=== PATIENT | male | born 1965 | race Two or more races ===

== ENCOUNTER → 2021-11-29 06:24 | Outpatient (CLI) | payer OTHER | END | disposition home or self-care (01) | LOC: LAB 06:24 | DX: E11.69 Type 2 diabetes mellitus with other specified complication (principal); E78.5 Hyperlipidemia, unspecified; I11.9 Hypertensive heart disease without heart failure; N40.0 Benign prostatic hyperplasia without lower urinary tract symptoms; Z12.11 Encounter for screening for malignant neoplasm of colon ==

== ENCOUNTER 2022-01-07 15:36 | Emergency (ER) | payer OTHER ==
[~2022-01-07] VITALS: Ht 180.3 cm; Wt 77.1 kg
[2022-01-07] MEDS ORDERED: METFORMIN HCL500 M4 PO (16:23)
[2022-01-07] MEDS ORDERED: KETO10TA2 PO (22:36)
== END 2022-01-07 22:47 | disposition home or self-care (01) ==
LOC: ER 15:36
DX: M79.672 Pain in left foot (principal); L84 Corns and callosities

== ENCOUNTER 2022-01-09 18:32 | Emergency (ER) | payer OTHER ==
[~2022-01-09] VITALS: Ht 180.3 cm; Wt 77.1 kg
[~2022-01-09 18:32] MED LIST: KETO10TA2 PO; METFORMIN HCL500 M4 PO
[2022-01-09] MEDS ORDERED: TRAMADOR (19:11)
[2022-01-10] MEDS ORDERED: ATORVASTATIN CA20 MG PO (15:17)
[2022-01-10] MEDS ORDERED: LISINOPRIL2.5 MG PO (15:17)
== END 2022-01-09 21:19 | disposition home or self-care (01) ==
LOC: ER 18:32
DX: L84 Corns and callosities (principal); M79.672 Pain in left foot

== ENCOUNTER 2022-01-10 14:36 | Inpatient (IN) | payer OTHER ==
[~2022-01-10] VITALS: Ht 180.3 cm; Wt 77.1 kg
[~2022-01-10 14:36] MED LIST changes: +TRAMADOR
[2022-01-10] MEDS ORDERED: ATORVASTATIN CA20 MG PO (15:17)
[2022-01-10] MEDS ORDERED: LISINOPRIL2.5 MG PO (15:17)
[2022-01-11] MEDS ORDERED: ACARBOSE25 MG (07:50)
== END 2022-01-14 17:23 | disposition home or self-care (01) | DRG 593 ==
LOC: ER 14:36 → MEDI 21:59
PROVIDERS: ADMIT Internal Medicine; ATTEND Internal Medicine
PROC: 0HBNXZZ Excision of Left Foot Skin, External Approach (ICD-10-PCS; principal; 2022-01-10)
PROC: 0H9NXZZ Drainage of Left Foot Skin, External Approach (ICD-10-PCS; 2022-01-10)
PROC: BQ3FZZZ Magnetic Resonance Imaging (MRI) of Left Lower Leg (ICD-10-PCS; 2022-01-10)
PROC: B54CZZZ Ultrasonography of Left Lower Extremity Veins (ICD-10-PCS; 2022-01-12)
DX: L97.523 Non-pressure chronic ulcer of other part of left foot with necrosis of muscle (principal); L02.612 Cutaneous abscess of left foot; L08.89 Other specified local infections of the skin and subcutaneous tissue; E11.621 Type 2 diabetes mellitus with foot ulcer; B96.89 Other specified bacterial agents as the cause of diseases classified elsewhere; M79.672 Pain in left foot; Z79.4 Long term (current) use of insulin; Z20.822 Contact with and (suspected) exposure to COVID-19

== ENCOUNTER 2025-01-02 07:17 | Emergency (ER) | payer OTHER ==
[~2025-01-02 07:17] MED LIST changes: +ACARBOSE25 MG; +ATORVASTATIN CA20 MG PO; +LISINOPRIL2.5 MG PO
[2025-01-02] MEDS ORDERED: CEFTRIAXONE SODIUM 2,000 MG VIAL IV ONE (14:15)
== END 2025-01-02 13:00 | disposition home or self-care (01) ==
LOC: ER 07:22
DX: E11.621 Type 2 diabetes mellitus with foot ulcer (principal); L97.528 Non-pressure chronic ulcer of other part of left foot with other specified severity; L03.116 Cellulitis of left lower limb; M79.672 Pain in left foot

== ENCOUNTER 2025-05-19 05:03 | Inpatient (IN) | payer OTHER ==
[~2025-05-19] VITALS: Ht 180.3 cm; Wt 79.4 kg
--- NOTE | 2025-05-19 05:19 | NUR ---
SE RECIBE PACIENTE ALERTA Y CONCIENTE X3. EL MISMO REFIERE VENIR A JEFFREY DE EMRGENCIA POR TENER EL PIES IZQ. INFLAMADO DESDE HACE 2 JOHNS. SE PROCEDE A MELISSA S/V AL PACIENTE Y SE UBICA
[2025-05-19] MEDS ORDERED: KETOROLAC TROMETHAMINE 30 MG VIAL IV STA (07:27)
[2025-05-19] MEDS ORDERED: CEFTRIAXONE SODIUM 1,000 MG VIAL IV STA (07:28)
[2025-05-19] MEDS ORDERED: KETOROLAC TROMETHAMINE 30 MG VIAL ONE (07:29)
[2025-05-19] MEDS ORDERED: CEFTRIAXONE SODIUM 1,000 MG VIAL ONE (07:29)
--- NOTE | 2025-05-19 07:39 | NUR ---
PTE ES ORIENTADO POR LIS DIGGS DE [place] MEDICO EL CUAL REFIERE ENTENDER Y ACEPTAR. SE COLOCA H/L, SE RECOLECTAN MUESTRAS DE LAB Y SE ADMISNITRAN MEDICAMENTOS RADHA ORDEN MEDICA BAJO MEDIDAS ASEPTICAS.
[2025-05-19 08:30] LABS: BASO % 0.4 % (0.1-1.2); EOS # 0.06 (0.04-0.54); EOS % 0.4 % (0.7-7.0); LYMPH # 1.48 (1.18-3.74); LYMPH % 9.2 % (19.3-53.1); MEAN PLATELET VOLUME 10.10 fl (9.4-12.4); MONO # 1.92 (0.24-0.82); MONO % 11.9 % (4.7-12.5); NEUT # 12.51 (1.56-6.13); NEUT % 77.5 % (34.0-71.1); RED CELL DISTRIBUTION WIDTH 11.6 % (11.6-14.4)
[2025-05-19 08:57] LABS: INR 1.05
[2025-05-19 09:03] LABS: ALT/SGPT 24.0 U/L (12-78); AST/SGOT 18.0 U/L (15-37); BILIRUBIN TOTAL 0.88 mg/dL (0.3-1.2); BUN CREA RATIO 18.0 (7.0-25.0); CREATININE SERUM 1.02 mg/dL (0.70-1.30); GFR 74.75; GLOBULINA 4.8 G/DL (2.4-3.5); GLUCOSE FASTING 163.0 mg/dL (65-100); OSMOLALITY SERUM 279.0 MOSM/KG (275-295)
[2025-05-19 09:11] LABS: URINE APPEARANCE Clear; URINE BILIRRUBIN Negative (NEGATIVE); URINE BLOOD Negative; URINE COLOR Yellow; URINE LEUKOCYTE Negative; URINE NITRATE Negative; URINE PROTEIN 30 (NEGATIVE); URINE UROBILINOGEN 0.2 E.U./dl
[2025-05-19 09:12] LABS: URINE BACTERIA 5.9 uL (0.0-1933); URINE EPITHELIAL CELLS 2.4 uL (0.0-38.8); URINE WBC 3.5 uL (0.0-23.2)
[2025-05-19 09:20] LABS: URINE CAST 0.58 uL (0.0-1.40); URINE GLUCOSE >=1000 MG/DL (NEGATIVE); URINE KETONE 80 (NEGATIVE); URINE RBC 0.8 uL (0.0-20.8)
[2025-05-19] MEDS ORDERED: DEXTROSE 50 % IN WATER 0.5 G/ML DISP.SYRIN IV PRN (13:45)
[2025-05-19] MEDS ORDERED: INSULIN LISPRO 1,000 UNIT/10 ML UNITS SUBCUTANEO PRN (13:45)
[2025-05-19] MEDS ORDERED: ENOXAPARIN SODIUM 40 MG/0.4 ML SYRINGE SUBCUTANEO SCH (13:48)
[2025-05-19] MEDS ORDERED: PANTOPRAZOLE SODIUM 40 MG in 0.9 % SODIUM CHLORIDE 8 ML IV PUSH SCH (13:48)
[2025-05-19] MEDS ORDERED: ENOXAPARIN SODIUM 40 MG/0.4 ML SYRINGE SUBCUTANEO ONE (13:55)
[2025-05-19] MEDS ORDERED: PIPERACILLIN/TAZOBACTAM SODIUM 3.375 GM VIAL IV ONE (13:55)
[2025-05-19] MEDS ORDERED: KETOROLAC TROMETHAMINE 30 MG VIAL IV PRN (14:00)
[2025-05-19] MEDS ORDERED: PIPERACILLIN/TAZOBACTAM SODIUM 3.375 GM in 0.9 % SODIUM CHLORIDE 100 ML IV SCH (14:00)
[2025-05-19] MEDS ORDERED: ACETAMINOPHEN 325 MG TABLET PO PRN (14:00)
[2025-05-19] MEDS ORDERED: 0.9 % SODIUM CHLORIDE 1,000 ML IV SCH (14:00)
[2025-05-19] MEDS ORDERED: LISINOPRIL 10 MG TABLET PO SCH (15:02)
[2025-05-19] MEDS ORDERED: hydrALAZINE HCL 20 MG VIAL IV PRN (15:15)
[2025-05-19 16:00] VITALS: BP 182/75; O2SAT 100
[2025-05-19] MEDS ORDERED: LACTOBACILLUS ACIDOPHILUS 1 CAP CAP PO ONE (16:01)
[2025-05-19] MEDS ORDERED: SODIUM CL 0.9% 100 ML IV.SOLN IV ONE (16:42)
[2025-05-19 17:00] VITALS: BP 120/67; O2SAT 97
[2025-05-19] MEDS ORDERED: LACTOBACILLUS ACIDOPHILUS 1 CAP CAP PO SCH (17:00)
[2025-05-20 00:42] VITALS: BP 120/69; O2SAT 96
[2025-05-20 06:43] LABS: CHOL HDL RATIO 4.8 (0-5.0); HDL 35.0 mg/dl (40-60); LDL 110.0 mg/dl (0-130); T4 FREE 1.19 NG/ML (0.76-1.46); TSH 0.441 uIU/mL (0.358-3.74); VLDL 23.0 (0-39)
[2025-05-20] MEDS ORDERED: LINEZOLID IN DEXTROSE 5% 600 MG/300 ML PIGGYBAG IV SCH (09:28)
[2025-05-20 16:29] VITALS: BP 127/74
[2025-05-21 03:13] VITALS: BP 146/77; O2SAT 96
[2025-05-21 08:40] VITALS: BP 171/85; O2SAT 96
[2025-05-21] MEDS ORDERED: LINEZOLID IN DEXTROSE 5% 600 MG/300 ML PIGGYBAG IV STA (08:40)
[2025-05-21 08:41] VITALS: BP 171/85; O2SAT 96
[2025-05-21] MEDS ORDERED: MUPIROCIN 22 GM OINT..GM TUBE NASAL SCH (09:00)
[2025-05-21] MEDS ORDERED: CHLORHEXIDINE GLUCONATE 120 ML BOTTLE TOP SCH (09:00)
[2025-05-21] MEDS ORDERED: EMOLLIENTS 6 OZ BOTTLE TOP SCH (11:35)
[2025-05-21 17:06] VITALS: BP 167/80; O2SAT 98
[2025-05-21] MEDS ORDERED: LINEZOLID IN DEXTROSE 5% 600 MG/300 ML PIGGYBAG IV SCH (21:00)
[2025-05-22 03:06] VITALS: BP 160/82; O2SAT 96
[2025-05-22 06:18] LABS: BASO % 0.5 % (0.1-1.2); EOS # 0.28 (0.04-0.54); EOS % 3.5 % (0.7-7.0); LYMPH # 1.83 (1.18-3.74); LYMPH % 23.0 % (19.3-53.1); MEAN PLATELET VOLUME 9.70 fl (9.4-12.4); MONO # 1.33 (0.24-0.82); NEUT # 4.40 (1.56-6.13); NEUT % 55.4 % (34.0-71.1); RED CELL DISTRIBUTION WIDTH 11.6 % (11.6-14.4)
[2025-05-22 06:37] LABS: MONO % 16.8 % (4.7-12.5)
[2025-05-22 06:44] LABS: ERYTHROCYTE SEDIMENTATION RATE 72 mm/hr (0-20)
[2025-05-22 07:02] LABS: ALT/SGPT 19.0 U/L (12-78); AST/SGOT 13.0 U/L (15-37); BILIRUBIN TOTAL 0.44 mg/dL (0.3-1.2); BUN CREA RATIO 14.0 (7.0-25.0); CREATININE SERUM 0.84 mg/dL (0.70-1.30); GFR 93.52; GLOBULINA 3.4 G/DL (2.4-3.5); GLUCOSE FASTING 153.0 mg/dL (65-100); OSMOLALITY SERUM 286.0 MOSM/KG (275-295)
[2025-05-22] MEDS ORDERED: INSULIN NPH HUM/REG INSULIN HM 1,000 UNIT/10 ML UNITS SUBCUTANEO STA (08:02)
[2025-05-22 08:59] VITALS: BP 155/82; O2SAT 97
[2025-05-22 17:59] VITALS: BP 195/79; O2SAT 97
[2025-05-22 22:58] VITALS: BP 170/90
[2025-05-23 03:00] VITALS: BP 165/92
[2025-05-23] MEDS ORDERED: INSULIN NPH HUM/REG INSULIN HM 1,000 UNIT/10 ML UNITS SUBCUTANEO SCH ×2 (08:00)
[2025-05-23] MEDS ORDERED: PANTOPRAZOLE SODIUM 40 MG TABLET.DR PO SCH (09:00)
[2025-05-23 09:22] VITALS: BP 160/89; O2SAT 98
[2025-05-23 19:24] VITALS: BP 157/82; O2SAT 97
[2025-05-24 03:38] VITALS: BP 156/80; O2SAT 96
[2025-05-24] MEDS ORDERED: INSULIN LISPRO 1,000 UNIT/10 ML UNITS SUBCUTANEO STA (08:25)
[2025-05-24] MEDS ORDERED: INSULIN GLARGINE,HUM.REC.ANLOG 1,000 UNITS/10 ML UNITS SUBCUTANEO SCH (09:00)
[2025-05-24 09:20] VITALS: BP 142/72
[2025-05-24] MEDS ORDERED: INSULIN LISPRO 1,000 UNIT/10 ML UNITS SUBCUTANEO SCH (12:00)
[2025-05-24 16:27] VITALS: BP 148/76; O2SAT 98
[2025-05-25 05:42] VITALS: BP 176/83; O2SAT 96
[2025-05-25 10:12] VITALS: BP 136/70
[2025-05-26 01:00] VITALS: BP 137/79; O2SAT 95
[2025-05-26 06:06] LABS: BASO % 0.5 % (0.1-1.2); EOS # 0.25 (0.04-0.54); EOS % 2.7 % (0.7-7.0); LYMPH # 2.12 (1.18-3.74); LYMPH % 23.2 % (19.3-53.1); MEAN PLATELET VOLUME 9.60 fl (9.4-12.4); MONO # 1.07 (0.24-0.82); MONO % 11.7 % (4.7-12.5); NEUT # 5.57 (1.56-6.13); NEUT % 61.0 % (34.0-71.1); RED CELL DISTRIBUTION WIDTH 11.3 % (11.6-14.4)
[2025-05-26 07:02] LABS: BUN CREA RATIO 19.0 (7.0-25.0); CREATININE SERUM 0.91 mg/dL (0.70-1.30); GFR 85.27; GLUCOSE FASTING 160.0 mg/dL (65-100); OSMOLALITY SERUM 284.0 MOSM/KG (275-295)
[2025-05-26 08:00] VITALS: BP 190/98; O2SAT 98
[2025-05-26] MEDS ORDERED: CEFEPIME HCL 2,000 MG VIAL IV SCH (09:00)
[2025-05-26] MEDS ORDERED: FAMOTIDINE/PF 20 MG/2 ML VIAL IV PUSH SCH (11:45)
[2025-05-26] MEDS ORDERED: ONDANSETRON HCL 4 MG in DEXTROSE 5 % IN WATER 50 ML IV SCH (17:00)
[2025-05-26] MEDS ORDERED: PANTOPRAZOLE SODIUM 40 MG TABLET.DR PO SCH (21:00)
[2025-05-26 21:31] VITALS: BP 175/77
[2025-05-27 01:50] VITALS: BP 119/74; O2SAT 97
[2025-05-27 09:17] VITALS: BP 180/74; O2SAT 98
[2025-05-27 17:28] VITALS: BP 185/88
[2025-05-27] MEDS ORDERED: LINEZOLID 600 MG TABLET PO SCH (21:00)
[2025-05-28 03:02] VITALS: BP 152/78; O2SAT 97
[2025-05-28 10:08] VITALS: BP 164/76; O2SAT 98
[2025-05-28 16:42] VITALS: BP 184/84
[2025-05-28] MEDS ORDERED: MAG HYDROX/ALUMINUM HYD/SIMETH 30 ML BLIST.PACK PO SCH (17:00)
[2025-05-28] MEDS ORDERED: AMINO ACIDS/PROTEIN HYDROLYS 30 ML BLIST.PACK PO SCH (17:00)
[2025-05-28 21:20] VITALS: BP 139/62
[2025-05-29 02:31] VITALS: BP 122/67; BP 127/75; O2SAT 94; O2SAT 96
[2025-05-29 09:29] VITALS: BP 145/69; O2SAT 99
[2025-05-29] MEDS ORDERED: JANUMET 50-5001 EACH PO (16:14)
[2025-05-29] MEDS ORDERED: FAMOTIDINE20 MG PO (16:14)
[2025-05-29] MEDS ORDERED: INTESTINEX680 M1 PO (16:14)
[2025-05-29] MEDS ORDERED: LINEZOLID600 MG PO (16:14)
[2025-05-29] MEDS ORDERED: PROTEINEX-18 LI30 ML PO (16:14)
[2025-05-29] MEDS ORDERED: PANTOPRAZOLE SO40 MG PO (16:14)
[2025-05-29] MEDS ORDERED: LISINOPRIL10 MG PO (16:14)
[2025-05-29 17:07] VITALS: BP 160/85; O2SAT 100
== END 2025-05-29 18:00 | disposition home or self-care (01) | DRG 580 ==
LOC: ER 05:03 → MEDI 13:44 → SEC-K 13:44 → MEDI 15:23
PROVIDERS: General Practice; Internal Medicine; ADMIT Internal Medicine; ATTEND Internal Medicine
PROC: BQ3MYZZ Magnetic Resonance Imaging (MRI) of Left Foot using Other Contrast (ICD-10-PCS; 2025-05-19)
PROC: 0JBR3ZZ Excision of Left Foot Subcutaneous Tissue and Fascia, Percutaneous Approach (ICD-10-PCS; 2025-05-20)
PROC: 8E0ZXY6 Isolation (ICD-10-PCS; 2025-05-21)
PROC: 0JBR3ZZ Excision of Left Foot Subcutaneous Tissue and Fascia, Percutaneous Approach (ICD-10-PCS; principal; 2025-05-28)
DX: L03.116 Cellulitis of left lower limb (principal); L97.528 Non-pressure chronic ulcer of other part of left foot with other specified severity; N17.8 Other acute kidney failure; B95.62 Methicillin resistant Staphylococcus aureus infection as the cause of diseases classified elsewhere; E78.49 Other hyperlipidemia; E11.22 Type 2 diabetes mellitus with diabetic chronic kidney disease; N18.2 Chronic kidney disease, stage 2 (mild); Z79.4 Long term (current) use of insulin; L08.89 Other specified local infections of the skin and subcutaneous tissue; E86.0 Dehydration; E11.621 Type 2 diabetes mellitus with foot ulcer; K29.00 Acute gastritis without bleeding

== ENCOUNTER 2025-05-31 05:11 | Emergency (ER) | payer OTHER ==
[~2025-05-31] VITALS: Ht 180.3 cm; Wt 79.4 kg
[~2025-05-31 05:11] MED LIST changes: +FAMOTIDINE20 MG PO; +INTESTINEX680 M1 PO; +JANUMET 50-5001 EACH PO; +LINEZOLID600 MG PO; +LISINOPRIL10 MG PO; +PANTOPRAZOLE SO40 MG PO; +PROTEINEX-18 LI30 ML PO
[2025-05-31] MEDS ORDERED: FAMOTIDINE/PF 20 MG/2 ML VIAL IV ONE (07:30)
[2025-05-31] MEDS ORDERED: 0.9 % SODIUM CHLORIDE 1,000 ML IV SCH (07:30)
[2025-05-31] MEDS ORDERED: FAMOTIDINE/PF 20 MG/2 ML VIAL ONE (07:31)
[2025-05-31 08:32] LABS: BASO % 0.6 % (0.1-1.2); EOS # 0.12 (0.04-0.54); EOS % 1.7 % (0.7-7.0); LYMPH # 1.46 (1.18-3.74); LYMPH % 20.8 % (19.3-53.1); MEAN PLATELET VOLUME 9.40 fl (9.4-12.4); MONO # 0.86 (0.24-0.82); NEUT # 4.50 (1.56-6.13); NEUT % 64.2 % (34.0-71.1); RED CELL DISTRIBUTION WIDTH 11.5 % (11.6-14.4)
[2025-05-31 08:38] LABS: MONO % 12.3 % (4.7-12.5)
[2025-05-31 09:12] LABS: ALT/SGPT 46.0 U/L (12-78); AST/SGOT 34.0 U/L (15-37); BILIRUBIN TOTAL 0.33 mg/dL (0.3-1.2); BUN CREA RATIO 17.0 (7.0-25.0); CREATININE SERUM 1.0 mg/dL (0.70-1.30); GFR 76.48; GLOBULINA 4.0 G/DL (2.4-3.5); OSMOLALITY SERUM 286.0 MOSM/KG (275-295)
[2025-05-31 09:18] LABS: GLUCOSE FASTING 285.0 mg/dL (65-100)
== END 2025-05-31 13:05 | disposition home or self-care (01) ==
LOC: ER 05:11
PROVIDERS: Student in an Organized Health Care Education/Training Program
DX: L97.529 Non-pressure chronic ulcer of other part of left foot with unspecified severity (principal); E11.9 Type 2 diabetes mellitus without complications; Z79.84 Long term (current) use of oral hypoglycemic drugs